=== PATIENT | male | born 1985 | race Caucasian/White ===

== ENCOUNTER 2022-06-21 09:58 | Emergency (ER) | payer OTHER, SELFPAY ==
--- NOTE | 2022-06-21 10:07 | ED.BACK ---
HPI - Back Pain/Injury General Chief Complaint: Back Pain/Injury Stated Complaint: muscle spasm Time Seen by Provider: 06/21/22 10:07 Source: patient Mode of arrival: ambulatory Limitations: no limitations History of Present Illness HPI Narrative: 37-year-old male presents with complaint of lower back pain and muscle spasming for the past week. 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 No history of back surgery. Reports in the past he did dry needling . And physical therapy that helped pain. He recently got out of and does not have a primary care physician or a current plan on how to treat his back pain. He states in the past muscle relaxants have helped. He is ambulatory with steady gait. No loss of bowel or bladder. No radiation of pain to lower extremities. No weakness Or numbness to lower extremities. All systems reviewed and negative except as noted above. Related Data Allergies Allergy/AdvReac Type Severity Reaction Status Date / Time Penicillins Allergy Unknown Verified 06/21/22 10:06 Review of Systems Review of Systems: CONSTITUTIONAL: Denies fever, chills, or sweats. EYES: Denies visual changes, redness, or discharge. ENT: Denies rhinorrhea, congestion, sore throat, or otalgia. CARDIOVASCULAR: Denies chest pain, palpitations, or edema. RESPIRATORY: Denies cough or dyspnea. GASTROINTESTINAL: Denies abdominal pain, nausea, vomiting, or diarrhea. GENITOURINARY: Denies dysuria or hematuria. SKIN: Denies rash or itching. MUSCULOSKELETAL: Reports lower back pain with muscle spasms. NEUROLOGIC: Denies headache, numbness, or weakness. PSYCHIATRIC: Denies anxiety or depression. All other systems reviewed are negative, except as documented in HPI. PMFSH Comments At time of signature, agree with nursing past medical, surgical, social and family history. There is no relevant family history pertinent to the presenting complaint. Exam Narrative: GENERAL: This is a well-nourished, well-developed patient, in no apparent distress. HEAD: normocephalic, atraumatic. EYES: PERRL. Sclera clear/white. Vision is grossly intact. EARS: External ears normal NOSE: External nose normal NECK: Neck supple, non-tender without lymphadenopathy, masses or thyromegaly. CARDIOVASCULAR: Regular rate and rhythm without murmurs, gallops, or rubs. RESPIRATORY: Clear to auscultation. Breath sounds equal bilaterally. No wheezes, rales, or rhonchi. SKIN: warm, Dry, intact with no suspicious lesions or rash, good texture and turgor. NEURO: awake, alert, and oriented to person, place and time. There were no obvious focal neurologic abnormalities. EXTREMITIES: No joint tenderness, effusion, or edema noted. BACK: No midline tenderness. There is some muscular tenderness on palpation to right lower back with spasm. No SI joint tenderness bilaterally. Negative straight leg raise. Lower extremity strength bilaterally 5/5. Gait normal. Course Course Level of Care: Express Care Visit Vital Signs Vital signs: Vital Signs Temperature 36.9 C 06/21/22 10:10 Pulse Rate 70 06/21/22 10:10 Respiratory Rate 16 06/21/22 10:10 Blood Pressure 101/87 06/21/22 10:10 Pulse Oximetry 100 06/21/22 10:10 Temperature 36.9 C 06/21/22 10:10 Pulse Rate 70 06/21/22 10:10 Respiratory Rate 16 06/21/22 10:10 Blood Pressure 101/87 06/21/22 10:10 Pulse Oximetry 100 06/21/22 10:10 Reviewed MDM - Back Pain/Injury MDM Narrative Medical decision making narrative: Patient is aware of diagnosis, understands and agrees to treatment plan. Anticipatory guidance given. Patient agrees to follow-up as directed and is aware of reasons to seek care at the emergency department. Portions of this record may have been created with voice recognition software Will treat with prednisone and muscle relaxant. no neuro deficits at discharge. Recomme
[2022-06-21 10:10] VITALS: BP 101/87; PULSE 70; RESP 16; TEMP 36.9; O2SAT 100
[2022-06-21] MEDS: KETOROLAC (*BKC) 60 MG/2 ML VIAL IM (10:23)
== END 2022-06-21 11:00 | disposition home or self-care (01) ==
PROVIDERS: Emergency Provider Nurse Practitioner Family
DX: M54.50 Low back pain, unspecified (principal)
CPT/HCPCS: 96372; 99213; G0463; J1885

== ENCOUNTER 2023-05-14 08:08 | Emergency (ER) | payer OTHER, SELFPAY ==
[2023-05-14 08:16] VITALS: BP 119/83; PULSE 74; RESP 16; TEMP 36.6; O2SAT 99
--- NOTE | 2023-05-14 08:23 | ED.URI ---
HPI - URI/Sore Throat General Chief Complaint: Upper Respiratory Infection Stated Complaint: Strep Symptoms Time Seen by Provider: 05/14/23 08:25 Source: patient, RN notes reviewed and old records reviewed Mode of arrival: ambulatory Limitations: no limitations History of Present Illness HPI Narrative: 38 year old male presents to [facility] care with complaints of 10 day history of sinus congestion, drainage,did have some fevers during initial symptoms. Patient reports that child at home tested positive for strep throat last week and was treated with antibiotics and is feeling better. Patient reports that he awoke with right eye redness and mucoid drainage this morning, denies any visual changes, reports no sharp pain to his right eye, admits to itching of right eye. MD elicited complaint: sore throat, rhinorrhea, nasal congestion, sinus pain and other (right eye redness and drainage) Pertinent past history: other (seasonal allergies) Onset (ago): day(s) (10) Consistency: constant Able to tolerate fluids by mouth: Yes Treatments prior to arrival: other (OTC sinus Max) Related Data Allergies Allergy/AdvReac Type Severity Reaction Status Date / Time Penicillins Allergy Unknown Verified 05/14/23 08:21 Review of Systems Review of Systems: CONSTITUTIONAL: Report malaise, no recent chills, sweats, or fever. EYES: Denies visual changes,positive for redness, and discharge right eye. ENT: Reports rhinorrhea, congestion, sinus pain,no otalgia and positive sore throat. CARDIOVASCULAR: Denies chest pain, palpitations, or edema. RESPIRATORY: Reports cough.? Denies dyspnea. GASTROINTESTINAL: Denies abdominal pain, nausea, vomiting, diarrhea SKIN: Denies rash or itching. MUSCULOSKELETAL: Denies myalgia. NEUROLOGIC: reports some headache. All systems reviewed & are unremarkable except as noted in HPI and below PMFSH Past Medical History Medical History (Updated 05/14/23 @ 09:52 by Cecily Bell NP) Back pain Seasonal allergies Social History Social History (Updated 05/14/23 @ 08:36 by Cecily Bell NP) Smoking status: Never smoker Alcohol intake: current Drinks per week: 2 Alcohol use details: social Substance use type: does not use Living arrangements: with family Gender identity (if verbalized by the patient): Male Comments At time of signature, agree with nursing past medical, surgical, social and family history. There is no relevant family history pertinent to the presenting complaint Exam Narrative: GENERAL: Well-appearing, well-nourished, and in no acute distress. HEAD: Normocephalic EYES: PERRLA, conjunctivae red right eye with mucoid drainage ENT: Nares clear, turbinates edematous and erythematous, clear to yellow discharge.sinus pressure and headache. Mucous membranes moist. TM pearly leal with dull light reflex bilaterally; no tragal tenderness. Oropharynx erythematous without lesions. Tonsils not enlarged and without exudate, no drooling, no hoarseness, no trismus, uvula midline.post nasal drainage NECK: Supple. No lymphadenopathy CHEST: Clear to auscultation, breath sounds equal. No wheezing, rhonchi, rales, or stridor. No respiratory distress, speaks in full sentences.SAO2 99% on room air HEART: Regular rate and rhythm. No murmur heard. SKIN: Warm, dry, no rash. NEURO: Alert and oriented x3. PSYCH: Normal mood and affect Course Course Emergency Course: Patient is aware of diagnosis, understands and agrees to treatment plan.? Anticipatory guidance given.? Patient agrees to follow-up as directed and is aware of reasons to seek care at the emergency department. Portions of this record may have been created with voice recognition software Level of Care: Express Care Visit Vital Signs Vital signs: Vital Signs Temperature 36.6 C 05/14/23 08:16 Pulse Rate 74 05/14/23 08:16 Respiratory Rate 16 05/14/23 08:16 Blood Pressure 119/83 05/14/23 08
== END 2023-05-14 08:42 | disposition home or self-care (01) ==
PROVIDERS: Emergency Provider Registered Nurse; PCP Family Medicine
DX: J01.40 Acute pansinusitis, unspecified (principal); H10.31 Unspecified acute conjunctivitis, right eye
CPT/HCPCS: 99213; G0463